=== PATIENT | male | born 1950 | race Caucasian/White ===

== ENCOUNTER 2017-09-29 05:59 | Inpatient (IN) | payer MEDICARE, BC, SELFPAY ==
--- NOTE | 2017-09-15 09:56 | PCM.HP.BLA ---
History and Physical DATE OF SERVICE: 09/29/2017 SCHEDULED PROCEDURE: Right total shoulder arthroplasty HISTORY OF PRESENT ILLNESS: This is a 67-year-old male who is been having ongoing pain in the right shoulder for several years. Patient states he has had multiple injuries to the shoulders during sports in the past. Pain is primarily with any overhead activity with the right upper extremity. He is right-hand dominant. He has pain with reaching in front, above, and behind his body. He has pain with throwing. Pain is over the lateral aspect of the right shoulder. Pain does awaken him at night. Patient states that activities of daily living cause increase in pain in the right shoulder. He does feel decreased motion and grinding sensation in the right shoulder. He has had a previous cortisone injection many years ago with relief. No recent treatments have been tried until July patient underwent a glenohumeral joint injection. It gave him minimal relief. He continues to have pain in the right shoulder. He feels weaker in the right shoulder. X-rays reveal severe osteoarthritis of the right shoulder at the glenohumeral joint. After failing conservative measures and discussing all treatment options with Dr. Whitman, the patient would like to proceed with a right total shoulder arthroplasty. Patient denies any recent chest pain, shortness of infections. We are obtaining surgical clearance from his primary care physician Dr. Pandey. No pertinent medical history. REVIEW OF SYSTEMS: ROS: Const: Denies anorexia, change in appetite, fever, difficulty sleeping, weight change. CV: Denies chest pain, heart murmur, irregular heartbeat and peripheral vascular disease. Resp: Denies asthma, cough, pneumonia, sleep apnea, shortness of breath, tuberculosis and wheezing. GI: Denies constipation, diarrhea, heartburn, nausea, rectal itching, bloody stools and vomiting. : . (F Genital Sx) Denies incontinence. Musculo: Denies leg swelling, pain, trouble walking and weakness. Skin: Reports tattoo, but denies Raynaud's and history of shingles. Neuro: Denies ambulatory dysfunction, dizziness, numbness/tingling and tremor. Psych: Denies anxiety, depression, insomnia, mental illness and stress. Kilo/Lymph: Denies anemia, bleeding/bruising tendency and past transfusion. Reviewed, no changes. PAST MEDICAL HISTORY: Advance Care Plan: Other Directive, LIVING WILL Effective Date: 11/03/2016 PMH: Medical Problems: Hypercholesterolemia, Prostate Accidents: Fracture - FINGERS Sports Related Injury - SEPERATED SHOULDERS Surgical Hx: Hernia Repair RT Distal Bicep Tendon Repair - (05/03/2014) [email or web address] Anesthesia Complications: None Assistive Devices: Glasses Reviewed, no changes. 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 Personal Habits: Smoking: Patient has never smoked.Cigarette Use: Never Smoked Cigarettes.Alcohol: Denies use.Drug Use: Denies Use.Enjoy Exercising: Exercises 1-3 X/Week. Reviewed, no changes. VITALS: Ht: 67 Wt: 213lb Wt k.617 BMI: 33.4 BP: 112/68 Pulse: 60 Resp: 14 T: 97.0 T: 36.1C ALLERGIES: No Known Drug Allergy MEDICATIONS: Finasteride 5 mg 1 by mouth every day, Tamsulosin HCL 0.4 mg 1 by mouth every day, Atorvastatin Calcium 10 mg 1 tab PO daily, Aspirin 81mg 1 by mouth every day PRE-OP EXAM: General appearance:NORMAL Other: Eyes: Conjunctivae and lids: NORMAL Pupils: ERR Ears, Nose, Mouth, and Throat: NORMAL Other: Inspection of lips, teeth and gums: NORMAL Other: Neck: Examination of neck: no masses noted. Respiratory: Assessment of respiratory effort: NORMAL Other: Ausculation of lungs: clear to ausculation no wheeses, ronchi or rales. Cardiovascular: Ausculation of heart: regular rate and rhythem, no mummurs, gallops or rubs. Exam of carotid arteries: NORMAL Other: Gastrointestinal: Exam of abdomen: soft, nontender, nondistended bowel sounds present. Lymphatic: Palpation of nodes in neck: NORMAL Other: Palpation of nodes in Axillae: NORMAL Other: Neurological: see below Psychiatric: Orientation to time, place and person: NORMAL Other: Mood and affect: NORMAL Other: PHYSICAL EXAMINATION: Right shoulder is cool to touch without erythema. He has tenderness to palpation over the lateral right shoulder. Patient has crepitus appreciated on range of motion. Forward elevation to 170? on the left, 115? on the right. External rotation is to 35? on the left and 20? on the right. Internal rotation is to beltline on the right and to T10 on the left. Sensations intact to light touch. Patient has good strength with the rotator cuff. IMAGING STUDIES: 1. X-rays of the right shoulder reveal severe glenohumeral-itis with posterior wear and large inferior osteophyte. Glenohumeral joint is well aligned. IMPRESSION: 1. Severe right shoulder glenohumeral osteoarthritis 2. Hypercholesterolemia 3. Prostate enlargement PLAN: Dr. Whitman did discuss and review with the patient all treatment options including surgical versus nonsurgical. Patient wishes to proceed with above-stated procedure. Potential risks, benefits, and complications of this procedure were discussed in detail including but not limited to , infection, nerve and blood vessel damage, persistent pain, numbness, tingling, paresthesias, blood clot, pulmonary embolism, and requirement for further surgery. The patient expressed full understanding has no further questions for the doctor. Patient does agree to proceed with the above-stated procedure and has signed the surgery consent form. We are obtaining surgical clearance from primary care physician Dr. Pandey. Patient will undergo preoperative lab work and EKG. ___ I have re-examined the patient. There are no clinical changes since date of exam. ___ See progress notes for changes. ___ Dictated on admission Date: Time: Signature:
--- NOTE | 2017-09-15 10:03 | HP.PCM_ITS ---
History and Physical DATE OF SERVICE: 09/29/2017 SCHEDULED PROCEDURE: Right total shoulder arthroplasty HISTORY OF PRESENT ILLNESS: This is a 67-year-old male who is been having ongoing pain in the right shoulder for several years. Patient states he has had multiple injuries to the shoulders during sports in the past. Pain is primarily with any overhead activity with the right upper extremity. He is right-hand dominant. He has pain with reaching in front, above, and behind his body. He has pain with throwing. Pain is over the lateral aspect of the right shoulder. Pain does awaken him at night. Patient states that activities of daily living cause increase in pain in the right shoulder. He does feel decreased motion and grinding sensation in the right shoulder. He has had a previous cortisone injection many years ago with relief. No recent treatments have been tried until July patient underwent a glenohumeral joint injection. It gave him minimal relief. He continues to have pain in the right shoulder. He feels weaker in the right shoulder. X-rays reveal severe osteoarthritis of the right shoulder at the glenohumeral joint. After failing conservative measures and discussing all treatment options with Dr. Whitman, the patient would like to proceed with a right total shoulder arthroplasty. Patient denies any recent chest pain, shortness of infections. We are obtaining surgical clearance from his primary care physician Dr. Pandey. No pertinent medical history. REVIEW OF SYSTEMS: ROS: Const: Denies anorexia, change in appetite, fever, difficulty sleeping, weight change. CV: Denies chest pain, heart murmur, irregular heartbeat and peripheral vascular disease. Resp: Denies asthma, cough, pneumonia, sleep apnea, shortness of breath, tuberculosis and wheezing. GI: Denies constipation, diarrhea, heartburn, nausea, rectal itching, bloody stools and vomiting. : . (F Genital Sx) Denies incontinence. Musculo: Denies leg swelling, pain, trouble walking and weakness. Skin: Reports tattoo, but denies Raynaud's and history of shingles. Neuro: Denies ambulatory dysfunction, dizziness, numbness/tingling and tremor. Psych: Denies anxiety, depression, insomnia, mental illness and stress. Kilo/Lymph: Denies anemia, bleeding/bruising tendency and past transfusion. Reviewed, no changes. PAST MEDICAL HISTORY: Advance Care Plan: Other Directive, LIVING WILL Effective Date: 11/03/2016 PMH: Medical Problems: Hypercholesterolemia, Prostate Accidents: Fracture - FINGERS Sports Related Injury - SEPERATED SHOULDERS Surgical Hx: Hernia Repair RT Distal Bicep Tendon Repair - (05/03/2014) [email or web address] Anesthesia Complications: None Assistive Devices: Glasses Reviewed, no changes. 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 Personal Habits: Smoking: Patient has never smoked.Cigarette Use: Never Smoked Cigarettes.Alcohol: Denies use.Drug Use: Denies Use.Enjoy Exercising: Exercises 1-3 X/Week. Reviewed, no changes. VITALS: Ht: 67 Wt: 213lb Wt k.617 BMI: 33.4 BP: 112/68 Pulse: 60 Resp: 14 T: 97.0 T: 36.1C ALLERGIES: No Known Drug Allergy MEDICATIONS: Finasteride 5 mg 1 by mouth every day, Tamsulosin HCL 0.4 mg 1 by mouth every day, Atorvastatin Calcium 10 mg 1 tab PO daily, Aspirin 81mg 1 by mouth every day PRE-OP EXAM: General appearance:NORMAL Other: Eyes: Conjunctivae and lids: NORMAL Pupils: ERR Ears, Nose, Mouth, and Throat: NORMAL Other: Inspection of lips, teeth and gums: NORMAL Other: Neck: Examination of neck: no masses noted. Respiratory: Assessment of respiratory effort: NORMAL Other: Ausculation of lungs: clear to ausculation no wheeses, ronchi or rales. Cardiovascular: Ausculation of heart: regular rate and rhythem, no mummurs, gallops or rubs. Exam of carotid arteries: NORMAL Other: Gastrointestinal: Exam of abdomen: soft, nontender, nondistended bowel sounds present. Lymphatic: Palpation of nodes in neck: NORMAL Other: Palpation of nodes in Axillae: NORMAL Other: Neurological: see below Psychiatric: Orientation to time, place and person: NORMAL Other: Mood and affect: NORMAL Other: PHYSICAL EXAMINATION: Right shoulder is cool to touch without erythema. He has tenderness to palpation over the lateral right shoulder. Patient has crepitus appreciated on range of motion. Forward elevation to 170? on the left, 115? on the right. External rotation is to 35? on the left and 20? on the right. Internal rotation is to beltline on the right and to T10 on the left. Sensations intact to light touch. Patient has good strength with the rotator cuff. IMAGING STUDIES: 1. X-rays of the right shoulder reveal severe glenohumeral-itis with posterior wear and large inferior osteophyte. Glenohumeral joint is well aligned. IMPRESSION: 1. Severe right shoulder glenohumeral osteoarthritis 2. Hypercholesterolemia 3. Prostate enlargement PLAN: Dr. Whitman did discuss and review with the patient all treatment options including surgical versus nonsurgical. Patient wishes to proceed with above- stated procedure. Potential risks, benefits, and complications of this procedure were discussed in detail including but not limited to , infection , nerve and blood vessel damage, persistent pain, numbness, tingling, paresthesias, blood clot, pulmonary embolism, and requirement for further surgery. The patient expressed full understanding has no further questions for the doctor. Patient does agree to proceed with the above-stated procedure and has signed the surgery consent form. We are obtaining surgical clearance from primary care physician Dr. Pandey. Patient will undergo preoperative lab work and EKG. ___ I have re-examined the patient. There are no clinical changes since date of exam. ___ See progress notes for changes. ___ Dictated on admission Date: Time: Signature:
[2017-09-15 10:40] VITALS: BP 129/85; PULSE 61; RESP 16; TEMP 36.4; O2SAT 97; BMI 33.3
--- NOTE | 2017-09-15 11:01 | SDCEKG_ITS ---
Test Reason : Blood Pressure : / mmHG Vent. Rate : 048 BPM Atrial Rate : 048 BPM P-R Int : 218 ms QRS Dur : 110 ms QT Int : 428 ms P-R-T Axes : 032 104 066 degrees QTc Int : 382 ms Marked sinus bradycardia with 1st degree A-V block Rightward axis Abnormal ECG Confirmed by RYAN FLORES, IVTA ([id number]), general expeditor REBECCA YOO ([id number]) on 09/21/2017 1:53:55 PM Referred By: [facility] Confirmed By:VITA DAVIS MD
[2017-09-15 11:31] LABS: Absolute Lymphocyte Count 1.25 X10^3/ul (0.83-4.51); Absolute Neutrophil Count 2.3 X10^3/uL (2.0-7.7); Basophil# 0.02 X10^3/uL; Basophil% 0.5 % (0-1); Eosinophil# 0.07 X10^3/uL; Eosinophils% 1.7 % (0-5); Hematocrit 43.3 % (40-54); Hemoglobin 14.7 g/dl (13.0-16.5); Lymphocyte # 1.25 X10^3/ul (4.0); Lymphocyte % 30.6 % (19-41); Mean Corp Hgb Conc 33.9 g/gl (32-36); Mean Corpuscular Volume 91.4 fL (80-94); Monocyte# 0.41 X10^3/uL; Neutrophil # 2.32 X10^3/uL (2.7-7.7); Platelet Count 144 K/mm3 (150-450); RBC Distribution Width CV 12.9 % (11.6-14.6); RBC Distribution Width SD 42.5 fl (35.1-43.9); Red Blood Count 4.74 M/mm3 (4.6-6.2); White Blood Count 4.1 K/mm3 (4.4-11.0)
[2017-09-15 11:39] LABS: POSITIVE COUNT NO; POSITIVE DIFFERENTIAL NO; POSITIVE MORPHOLOGY NO
[2017-09-15 11:50] LABS: Anion Gap 8 (5-15); BUN 15 mg/dL (7-18); BUN/Creat Ratio 15.8 RATIO (10-20); Chloride 109 mmol/L (98-107); Creatinine, Serum 0.95 mg/dL (0.70-1.30); EST Glomerular Filtration Rate 83 mL/min (>60); Est Glom Filt Rate - Afr Amer 101 mL/min (>60); Estimated Creatinine Clearance 68.61 ml/min; Glucose 84 mg/dL (74-106); Potassium 4.1 mmol/L (3.5-5.1); Sodium Level 143 mmol/L (136-145)
[2017-09-29] VITALS (12 sets, daily range): BP systolic 110–146; BP diastolic 62–81; PULSE 57–95; RESP 14–18; TEMP 36.1–37.2; O2SAT 90–100; BMI 33.3
[2017-09-29] MEDS: oxyCODONE HCl Cr 10 MG Tablet PO (06:29)
[2017-09-29] MEDS: Acetaminophen 500 MG Tablet 1000 MG PO ×3 (06:29→21:06)
[2017-09-29] MEDS: Celecoxib 200 MG Capsule 400 MG PO (06:29)
[2017-09-29] MEDS: Scopolamine 1mg/72hr Patch 1 PATCH TD (07:15)
[2017-09-29] MEDS: Lactated Ringers 1,000 ML 999 ML IV (07:25)
[2017-09-29] MEDS: Cefazolin 2 GM in 0.9% Normal Saline 100 ML IV (08:00)
--- NOTE | 2017-09-29 08:15 | OP.PCM_ITS ---
Report of Operation Date of Procedure: 09/29/17 Pre-Operative Diagnosis: Right shoulder primary glenohumeral osteoarthritis Post-Operative Diagnosis: Right shoulder primary glenohumeral osteoarthritis Surgery/Procedure Performed:: Right anatomic total shoulder replacement Description of Surgical Findings:: We will shoulder with good subscapularis repair. Lesser tuberosity osteotomy was performed. senior animal trainer: Rubi Ley Type of Anesthesia:: General/Regional Anesthesiologist: Randy Cooper Special Medications: 2 g Ancef, 1 g TXA at incision, 1 g TXA closure, 10 mg Decadron, joint cocktail (5 mg Duramorph, 30 mL of 0.5% Ropivicaine, 1000 units of epinephrine, 30 mg of Toradol), 1 g Ancef administered throughout case Specimen's removed: Bony cuts Estimated Blood Loss (mL): 100 Fluids Replaced: 1500 ml crystalloid Description of Procedure: Components used 1. Equinox glenoid XL, 8? posterior augmented 2. Equinox 0mm humeral replicator plate 3. Equinox 50mm, 19mm humeral head 4. Equinox humeral stem primary press-fit 15mm size Brief history/Operative indications: 67 yo m with history of r shoulder primary glenohumeral osteoarthritis. Patient failed conservative measures as mentioned in the H&P. After discussion of risk and benefits of reverse total shoulder replacement including but not limited to blood loss, DVTs, PEs, nerve vessel damage, infection, general risk of anesthesia including loss of life, instability and stiffness patient demonstrating understanding wish to proceed was able to sign informed consent. Medical clearance was obtained. Procedure: On the date of the procedure, patient's r upper extremity was marked in the preoperative area. Patient was taken back to the operating room where they were placed on the table in the supine position. Anesthesia assumed control of the C-spine and airway, then administered anesthetic. All bony prominences were identified well-padded, the head was secured and the patient was placed in the beachchair position at about 35? inclination. Anesthesia remained in control of the C-spine airway throughout the remainder of the procedure. Patient was then appropriately fastened to the table and the r upper extremity was prepped in a sterile fashion. The surgeons then scrubbed. Upon reentering the room, the r upper extremity was draped in a sterile fashion and the incision was marked out. Timeout was called, everyone agreed upon the side, the site, the procedure to be performed, patient identity and antibiotics given. Incision was taken down through skin and subcutaneous tissue, fat down to fascia. The stripe of the deltopectoral interval and cephalic vein were identified and blunt dissection was used to retract the deltoid. The cephalic vein was retracted laterally. Clavipectoral fascia was then incised and a cobra retractor was placed in the wound. The proximal one third of the pectoralis major insertion was released. Pectoralis tendon insertion was used to tenodesed the biceps tendon which was identified in the bicipital groove. Tenodesis was done with #1 Vicryl. Proximally we followed the biceps tendon after transecting it into the rotator interval. The rotator interval was split and the arm was externally rotated. The split was 1 cm medial to the bicipital groove. Subscapularis tendon was released using a lesser tuberosity osteotomy. We released down the anterior portion of the humeral head and a gonzales elevator was used to release the inferior portion of the humeral head. The arm was externally rotated and the shoulder was dislocated. The [employer] humeral head cutting guide was used to make humeral cut. This was done even with the articular surface. Once his humeral head cut was made humerus was retracted out of the way and the glenoid was exposed. After exposing the glenoid, the labrum and the remaining proximal biceps were debrided. At this time we are able to view the entire outer edge of the glenoid. A central pin was placed we sequentially reamed over this central pin to extra-large. Once this was completed the central pedicle was drilled. Wound was closely irrigated out with normal saline we then drilled sequentially for the coinciding 3 peg holes. Once these were drilled graft was placed into the central peg of the glenoid and the glenoid was impacted into place. The glenoid was secure we directed our attention to the humerus The humerus was again externally rotated exposing the proximal portion of the humerus. Central canal finder was then used to open up the canal. We reamed to a 15mm reamer. We then broached to a 15mm stem. We trialed the 0mm replicator plate, with the [id number] humeral head. We obtained an adequate reduction at this time with a nice stable shoulder. Good internal rotation to the gluteus, forward elevation to 140?, external rotation to 20? and 50% posterior translation. Final components were then assembled on the back table, trials were removed and the wound was copiously irrigated with normal saline after dislocating the shoulder. Once the final components were assembled they were impacted into place. Shoulder was then reduced and found to be stable with good range of motion. Wound was copiously irrigated out with normal saline. Subscapularis tendon was then repaired securely with FiberWire. The deltopectoral fascia was then closed using #1 Vicryl skin was closed using 2-0 Vicryl interrupted sutures and final skin closure was done with 3-0 Monocryl. Steri-Strips are placed for final skin closure. Sterile dressing was placed patient was then placed in a sling and awakened by anesthesia. Patient was then transferred to the PACU for recovery. Postoperative plan: Patient will be admitted to the hospital overnight. They will get physical therapy starting in 2 weeks with normal postoperative regimen. Patient will be placed on 325 mg aspirin daily for DVT prophylaxis. The first postoperative appointment will be in 2 weeks for wound check and initiation of phase 1 physical therapy. Grafts/Implants Used: [employer] Equinox total shoulder - Complications none - Admit VTE Documentation VTE Present on Admission: No VTE Mechan Device Prophylaxis: SCD's, Thigh High MOOK Hose VTE Pharm Prophylaxis ordered?: Yes
--- NOTE | 2017-09-29 10:50 | RAD_ITS ---
STUDY: X-RAY - RIGHT SHOULDER REASON FOR EXAM: Postoperative shoulder arthroplasty. TECHNIQUE: A single portable view of the shoulder. COMPARISON: Fluoroscopic image 07/22/2017. FINDINGS: There is a right shoulder arthroplasty without evidence of complication. There is suspected distal clavicle excision. There is a soft tissue calcification medial to the proximal humeral diaphysis also evident on the fluoroscopic image in July. There is atelectasis at the right lung base. RAD/Shoulder One View IMPRESSION: Right shoulder arthroplasty without evidence of complication. Electronically Signed: Refugio Blankenship MD at 11:31 EST Tel , Service support ,
[2017-09-29] MEDS: Lactated Ringers 1,000 ML 125 ML IV ×3 (11:00→23:25)
[2017-09-29] MEDS: Ketorolac 15 MG/ML Vial IV (11:07)
[2017-09-29] MEDS: Cefazolin 1 GM/50 ML BAG IV (16:48)
[2017-09-29] MEDS: Finasteride 5 MG Tablet PO (18:45)
[2017-09-29] MEDS: Tamsulosin HCl 0.4 MG Capsule PO (18:45)
[2017-09-29] MEDS: Atorvastatin Calcium 40 MG Tablet PO (18:45)
[2017-09-30] MEDS: Cefazolin 1 GM/50 ML BAG IV (00:14)
[2017-09-30] MEDS: oxyCODONE 5 MG Tablet PO (00:20)
[2017-09-30 02:15] VITALS: BP 108/59; PULSE 52; RESP 16; TEMP 37.5; O2SAT 96
[2017-09-30] MEDS: 0.9% NaCl Peripheral Flush Adult/Peds IV (05:52)
[2017-09-30] MEDS: Acetaminophen 500 MG Tablet 1000 MG PO (05:52)
--- NOTE | 2017-09-30 07:14 | PCM.PN.ORT ---
Subjective: The patient was sitting in bed upon examination. Patient denies any chest pain, shortness of breath, dizziness, lightheadedness, nausea or vomiting, or calf pain. Pain is controlled on medications. No adverse overnight events. Patient is doing very well and has no complaints today. Patient does wish to go home today. Objective: Dressing is C/D/I Ultra-sling fitting appropriately Sensation intact to axillary, radial, median, and ulnar distribution Motor intact to AIN, PIN, and ulnar nerve - Physical Exam General: Alert, Oriented x3, Cooperative, No apparent distress Vital Signs Temp Pulse Resp BP Pulse Ox 99.5 F H 52 L 16 108/59 L 96 09/30/17 02:15 09/30/17 02:15 09/30/17 02:15 09/30/17 02:15 09/30/17 02:15 Oxygen Flow Rate 2 Oxygen Delivery Method Room Air Weight: 96.615 kg Body Mass Index (BMI) 33.3 Intake and Output for Last 24 Hours 09/28/17 09/29/17 09/30/17 23:59 23:59 23:59 Intake Total 2605 / 2605 2381 / 2381 Output Total 1400 / 1400 Balance 2605 / 2605 981 / 981 Assessment/Plan 1. S/P right anatomic total shoulder arthroplasty POD #1 2. Continue Pain Medications: Tylenol and OxyIR 3. DVT Prophylaxis: Aspirin 325 mg daily for 2 weeks 4. PT/OT: Begin outpatient physical therapy 2 weeks postoperatively. Follow total shoulder arthroplasty precautions 5. Encouraged Incentive Spirometry 6. Disposition: Orthopedically stable, plan will be for discharge home today. Patient will continue with UltraSling with range of motion restrictions of external rotation to 0? and flexion to 90?. Prescriptions are attached to chart. Patient will follow [facility] postop instructions.
--- NOTE | 2017-09-30 07:25 | DCINST_ITS ---
Discharge Diet: No Restrictions Discharge Activity: May Not Drive May shower in (days): 1 - Turned dressing away from water Ice area for (Minutes): 20 - Ice area for 20 minutes each hour while awake Weight Bearing Status: No weight bearing - Right upper extremity Keep extremity elevated above heart level: Operative Extremity Call your doctor if your incision/area has: Continuous Slow Oozing, Sudden Increased Bleeding, Increased Pain/ Swelling, Increased Redness, Foul Smelling Discharge Call your doctor if you observe: Fever of 101 or Higher, Coldness, Increased Pain, Numbness or Tingling, Change in Color Remove Dressing in (days):: 4 - Okay to remove on October 04, 2017 Additional Instructions: Follow [facility] postop instructions Do not take 81 mg aspirin while taking full dose aspirin for 2 weeks Okay to work on elbow, wrist, hand range of motion 3-4 times daily. There will be restrictions on right shoulder range of motion consisting of external rotation to 0? and forward flexion to 90? Allergies/Adverse Reactions: Allergies No Known Allergies Allergy (Verified 09/15/17 10:38) Medications to take at Discharge Atorvastatin Calcium [Lipitor] 40 mg PO QHS 05/02/14 Finasteride [Proscar] 5 mg PO DAILY 05/02/14 Tamsulosin HCl [Flomax] 0.4 mg PO DAILY 05/02/14 Acetaminophen [Tylenol] 1,000 mg PO Q8 #90 tab 09/30/17 Aspirin 325 mg PO DAILY@0800 #14 tab 09/30/17 Famotidine [Pepcid] 20 mg PO DAILY #14 tab 09/30/17 Oxycodone [Oxyir] 5 - 10 mg PO Q4H PRN PRN 5 Days #60 tab 09/30/17 The following prescriptions were given: Oxycodone [Oxyir] 5 - 10 mg PO Q4H PRN PRN 5 Days #60 tab PRN Reason: Pain Acetaminophen [Tylenol] 1,000 mg PO Q8 #90 tab Aspirin 325 mg PO DAILY@0800 #14 tab Famotidine [Pepcid] 20 mg PO DAILY #14 tab Primary Care Physician: Lupillo Pandey [Primary Care Provider] - Please Follow Up With: Lv Michael PA-C When: 10/13/17 @ 10:15 am Please Follow Up With: Physical Therapy When: [facility] will call to schedule appointment
[2017-09-30] MEDS: Aspirin 325 MG Tablet PO (08:12)
[2017-09-30] MEDS: Famotidine 20 MG Tablet PO (08:13)
[2017-09-30 08:15] VITALS: BP 121/62; PULSE 57; RESP 16; TEMP 36.8; O2SAT 98
== END 2017-09-30 09:49 | disposition home or self-care (01) | DRG 483 ==
LOC: ACINP 06:00 → MS3 07:38
PROVIDERS: Admitting Provider Specialist; Family Provider Family Medicine; PCP Family Medicine; Visit Provider Specialist
PROC: 0RRJ0JZ Replacement of Right Shoulder Joint with Synthetic Substitute, Open Approach (ICD-10-PCS; CPT 23472; principal; 2017-09-29 07:45)
DX: M19.011 Primary osteoarthritis, right shoulder (principal); E78.00 Pure hypercholesterolemia, unspecified; N40.0 Benign prostatic hyperplasia without lower urinary tract symptoms
CPT/HCPCS: 73020; 80048; 85025; 87077; 87081; 97166; J7040; J7120; A4216